=== PATIENT | female | born 1995 | race Hispanic/Latino ===

== ENCOUNTER 2018-10-17 22:56 | Emergency (ER) | payer OTHER ==
[2018-10-18] MEDS ORDERED: ONDANSETRON ODT 4 MG TAB ONE (00:01)
[2018-10-18 00:20] LABS: BILIRUBIN,URINE Negative (NEGATIVE); COLOR,URINE Yellow (YELLOW); GLUCOSE, URINE (UA) Negative (NEGATIVE); KETONES,URINE Negative (NEGATIVE); LEUKOCYTE ESTERASE ,URINE Small (NEGATIVE); NITRATE,URINE Negative (NEGATIVE); OCCULT BLOOD,URINE Negative (NEGATIVE); PH,URINE 7.5 (5.0-8.0); PROTEIN,URINE Negative (NEGATIVE)
[2018-10-18 00:21] LABS: APPEARANCE,URINE SLIGHTLY CLOUDY (CLEAR)
[2018-10-18 00:22] LABS: HCG,QUAL RESULT NEGATIVE (NEGATIVE)
[2018-10-18 00:38] LABS: AMORPHOUS SEDIMENT,UR Few /LPF (None Seen); BACTERIA,URINE None Seen /HPF (None Seen); RBC,URINE None Seen /HPF (0-1); SQUAMOUS EPITHELIAL CELL,UR Few /HPF (0-2); WBC,URINE None Seen /HPF (0-1)
== END 2018-10-18 01:12 | disposition home or self-care (01) ==
LOC: EDH 22:56
DX: N39.0 Urinary tract infection, site not specified (principal); Z72.0 Tobacco use
CPT/HCPCS: 81001; 81025